=== PATIENT | male | born 1980 | race Caucasian/White ===

== ENCOUNTER 2023-02-09 13:51 | Outpatient (CLI) | payer OTHER | END 2023-02-09 13:52 | disposition home or self-care (01) | LOC: MRI 13:51 | PROVIDERS: ATTEND Family Medicine | DX: M51.9 Unspecified thoracic, thoracolumbar and lumbosacral intervertebral disc disorder (principal); M47.816 Spondylosis without myelopathy or radiculopathy, lumbar region; M47.815 Spondylosis without myelopathy or radiculopathy, thoracolumbar region; M47.817 Spondylosis without myelopathy or radiculopathy, lumbosacral region; N28.9 Disorder of kidney and ureter, unspecified; Z98.890 Other specified postprocedural states | CPT/HCPCS: 72146; 72148 ==

== ENCOUNTER 2023-05-05 11:16 | Outpatient (CLI) | payer OTHER | END 2023-05-05 11:17 | disposition home or self-care (01) | LOC: SCSRAD 11:16 | PROVIDERS: ATTEND Anesthesiology | DX: M47.26 Other spondylosis with radiculopathy, lumbar region (principal); M51.37 Other intervertebral disc degeneration, lumbosacral region | CPT/HCPCS: 72100 ==

== ENCOUNTER 2024-11-12 16:11 | Outpatient (CLI) | payer OTHER | END 2024-11-12 16:12 | disposition home or self-care (01) | LOC: BICRAD 16:11 | PROVIDERS: ATTEND Nurse Practitioner Family | DX: M51.9 Unspecified thoracic, thoracolumbar and lumbosacral intervertebral disc disorder (principal); M47.817 Spondylosis without myelopathy or radiculopathy, lumbosacral region; V89.2XXD Person injured in unspecified motor-vehicle accident, traffic, subsequent encounter | CPT/HCPCS: 72040; 72072; 72100 ==